=== PATIENT | male | born 1990 | race Caucasian/White ===

== ENCOUNTER 2019-08-20 06:06 | Inpatient (IN) | payer BC ==
[2019-08-20 07:12] LABS: #Basophils 0.1 thou/uL (0.0-0.2); #Eosinphils 0.2 thou/uL (0.0-0.7); #Lymphocytes 2.8 thou/uL (1.20-3.40); #Monocytes 0.9 thou/uL (0.11-0.59); #Neutrophils 4.1 thou/uL (1.40-6.50); %Basophils 0.9 % (0.0-1.0); %Lymphocytes 34.2 % (21.0-51.0); Hemoglobin 14.9 g/dL (14.0-18.0); Mean Corpuscular HGB CONC 33.4 g/dL (32.0-36.0); Mean Corpuscular Hemoglobin 30.7 pg (27.0-31.0); Mean Corpuscular Volume 91.8 fL (78.0-98.0); Mean Platelet Volume 7.5 fL (7.4-10.4); Platelet Count 204 thou/uL (130-400); RBC Distribution Width 11.6 % (11.5-14.5); Red Blood Cell (RBC) Count 4.85 mill/uL (4.70-6.10); White Blood Cell (WBC) Count 8.1 thou/uL (4.8-10.8)
[2019-08-20 07:25] LABS: Anion Gap 9 mmol/L (10-20); BUN (Urea Nitrogen) 17 mg/dL (8.9-20.6); Calc. Creatinine Clearance 110 mL/min (70-130); Calcium 9.3 mg/dL (7.8-10.44); Carbon Dioxide 29 mmol/L (22-29); Chloride 105 mmol/L (98-107); Estimated GFR-MDRD 71; Glucose 94 mg/dL (70-105); Potassium 4.1 mmol/L (3.5-5.1); Sodium 139 mmol/L (136-145)
[2019-08-20] MEDS ORDERED: Midazolam HCl 2 mg/2 ml Vial ONE (07:30)
[2019-08-20] MEDS ORDERED: ePHEDrine/0.9% NaCl/PF SYRINGE 50 mg/10 ml ONE (09:29)
[2019-08-20] MEDS ORDERED: Ondansetron PF 4 MG/2 ML Vial ONE (09:29)
[2019-08-20] MEDS ORDERED: Lidocaine 1% PF 5 ML VIAL ONE (09:29)
[2019-08-20] MEDS ORDERED: PHENYLEPHRINE-NS 100 MCG/ML 10 ML SYRINGE ONE (09:29)
[2019-08-20] MEDS ORDERED: Dexamethasone 20 MG/5 ML VIAL ONE (09:29)
[2019-08-20] MEDS ORDERED: PROPOFOL 200 MG/20 ML VIAL ONE (09:29)
[2019-08-20] MEDS ORDERED: Glycopyrrolate 0.2 MG/ML 5 ML SYRINGE ONE (09:29)
[2019-08-20] MEDS ORDERED: Rocuronium Bromide 10 MG/ML (10ML VIAL) ONE (09:29)
[2019-08-20] MEDS ORDERED: Fentanyl 100 MCG/2 ML VIAL ONE ×2 (10:08→12:50)
[2019-08-20] MEDS ORDERED: Meperidine HCl/PF 25 MG/ML VIAL SLOW IVP PRN (11:59)
[2019-08-20] MEDS ORDERED: Promethazine HCl 25 MG/ML VIAL IM PRN ×2 (11:59→13:18)
[2019-08-20] MEDS ORDERED: Ondansetron HCl/PF 4 MG/2 ML Vial IVP PRN (11:59)
[2019-08-20] MEDS ORDERED: Promethazine HCl 25 MG/ML VIAL SLOW IVP PRN (11:59)
--- NOTE | 2019-08-20 12:42 | OP ---
DATE OF PROCEDURE: 08/20/2019 [employer]: Ariana Lehman PA-C PROCEDURES PERFORMED: L3-L4 laminectomy, removal of intradural tumor, and operative microscope. DESCRIPTION OF PROCEDURE: The patient was brought to the operating room and intubated. He was rolled in a prone position on gel-filled chest rolls. An incision was made exposing L2 through L5 and the level was confirmed by x-ray. We performed complete L4 and complete L3 laminectomies. The dura was incised in the midline. The tumor was immediately obvious. Using operative microscope and microdissection techniques, the tumor had a thickened filament entering and exiting the tumor suggestive of the filum. There was discrete from other associated cauda equina. The tumor was removed in its entirety, capsulated, and sent for final pathology. The subarachnoid space was then extensively irrigated. The dura was closed in watertight fashion with a running Prolene suture. This was reinforced with DuraSeal fibrin sealant. MAC hemostasis was then secured. Vancomycin powder was applied and the wound was closed in anatomic layers. Job ID: [id number]
[2019-08-20] MEDS ORDERED: traMADol HCl 50 MG TAB PO PRN ×2 (13:18)
[2019-08-20] MEDS ORDERED: diphenhydrAMINE 50 MG/ML VIAL IVP PRN (13:18)
[2019-08-20] MEDS ORDERED: diphenhydrAMINE 25 MG CAP PO PRN (13:18)
[2019-08-20] MEDS ORDERED: Promethazine HCl 12.5 MG SUPP PR PRN (13:18)
[2019-08-20] MEDS ORDERED: HYDROcodone/Acetaminophen 10/325 mg Tablet PO PRN (13:18)
[2019-08-20] MEDS ORDERED: Morphine 4 MG/ML VIAL SLOW IVP PRN (13:18)
[2019-08-20] MEDS ORDERED: Promethazine 25 MG TAB PO PRN (13:18)
[2019-08-20] MEDS ORDERED: Ondansetron PF 4 MG/2 ML Vial IM PRN (13:18)
[2019-08-20] MEDS ORDERED: Milk Of Magnesia 30 ML UDCUP PO PRN (13:18)
[2019-08-20] MEDS ORDERED: Mag-Al 1200 mg/1200 mg/30 ML UDCUP PO PRN (13:18)
[2019-08-20] MEDS ORDERED: Morphine 2 MG/ML SYRINGE SLOW IVP PRN (13:19)
[2019-08-20] MEDS ORDERED: Promethazine HCl 25 MG/ML VIAL ONE (13:29)
[2019-08-20] MEDS ORDERED: CEFAZOLIN 2 GM in Premix Bag 1 BAG IVPB SCH (14:00)
[2019-08-20 14:18] VITALS: BMI 25.0
[2019-08-20] MEDS: Sodium Chloride 0.9% 1,000 ML IV SCH (14:26)
[2019-08-20] MEDS: HYDROcodone/Acetaminophen 10/325 mg Tablet PO PRN (16:58)
[2019-08-20] MEDS: CEFAZOLIN 2 GM in Premix Bag 1 BAG IVPB SCH (18:01)
[2019-08-20] MEDS: tiZANidine HCl 4 MG TAB PO PRN (23:01)
[2019-08-21] MEDS: CEFAZOLIN 2 GM in Premix Bag 1 BAG IVPB SCH (01:13)
[2019-08-21] MEDS: HYDROcodone/Acetaminophen 10/325 mg Tablet PO PRN ×5 (02:36→23:17)
[2019-08-21] MEDS: Sodium Chloride 0.9% 1,000 ML IV SCH ×2 (04:09→14:29)
--- NOTE | 2019-08-21 06:24 | PRG ---
DATE OF SERVICE: 08/21/2019 SUBJECTIVE: The patient is a 29-year-old male, status post L3-L4 laminectomy with intradural spinal tumor resection. He is postoperative day #1. His main complaint today is postural headaches and nausea. He has minimal back pain. Denies any leg pain or dysesthesias. His bowel and bladder are working appropriately. OBJECTIVE: On exam this morning, the patient awakens easily. He has free active range of motion in all extremities. No focal motor weakness. Incision is clean, dry, and intact. There is a scant amount of bloody drainage on his dressing. When we sit him up, he does get significant headache. PLAN: We will continue to work on pain control and localization. Anticipate his postural headaches will improve with time. At this point, there is no evidence of CSF leak from the incision. We will continue to monitor things closely. Job ID: [id number]
--- NOTE | 2019-08-21 11:33 | PRG ---
DATE OF SERVICE: 08/21/2019 The patient is doing quite well from a neurologic perspective. He is having significant postural spinal headache, which is not anticipated. This will gradually improve and as it allows, we can mobilize him towards dismissal. Awaiting final pathology. Job ID: [id number]
--- NOTE | 2019-08-21 14:07 | EKG ---
Test Reason : PREOP Blood Pressure : / mmHG Vent. Rate : 066 BPM Atrial Rate : 066 BPM P-R Int : 152 ms QRS Dur : 106 ms QT Int : 372 ms P-R-T Axes : 052 100 052 degrees QTc Int : 389 ms Normal sinus rhythm Rightward axis Borderline ECG No previous ECGs available Confirmed by MASON PICKETT, DR. Loo ([id number]) on 08/21/2019 2:07:38 PM Referred By: GUSTAVO Confirmed By:DR. Eze CUEVAS MD
[2019-08-21] MEDS: tiZANidine HCl 4 MG TAB PO PRN (19:40)
[2019-08-22 03:42] VITALS: TEMP 98.6
[2019-08-22] MEDS: tiZANidine HCl 4 MG TAB PO PRN ×2 (04:25→10:34)
[2019-08-22] MEDS: HYDROcodone/Acetaminophen 10/325 mg Tablet PO PRN (04:25)
[2019-08-22] MEDS: Sodium Chloride 0.9% 1,000 ML IV SCH (05:45)
[2019-08-22 07:27] VITALS: BP 112/63
--- NOTE | 2019-08-22 17:29 | DIS ---
DATE OF ADMISSION: 08/20/2019 DATE OF DISCHARGE: 08/22/2019 HOSPITAL COURSE: The patient is a 29-year-old male, who is status post L3-L4 laminectomy with spinal tumor resection. Following surgery, he was transitioned to the med/surg floor. He initially had some postural headaches and nausea, but this has improved with time. His pain has been well controlled with p.o. medications, he is tolerating regular diet, he is voiding appropriately. He has not had any incisional issues. He has been up ambulating in the department without any difficulties. We will plan to dismiss the patient to home. I have discussed home care precautions. We will follow up with the patient in approximately 2 weeks. Job ID: [id number]
--- NOTE | 2019-08-23 04:43 | PQF ---
KELVIN DWYER JONATHAN A MD [id number] SURG A- [id number] CLINICAL DOCUMENTATION CLARIFICATION FORM: POST DISCHARGE Addendum to original discharge summary date: ____ Late entry note date: __ DATE: 08/23/19 ATTN: Froylan Chi Please exercise your independent, professional judgment in responding to the clarification form. Clinical indicators are provided on the bottom of this form for your review Final Diagnosis on the Pathology report: Spinal Tumor: Schwannoma Clarification of Pathology report: Please check appropriate box(s): [ ] Agree w the pathology finding of Schwannoma [ ] Other explanation of pathology findings (please specify) [ ] Other diagnosis [ ] Unable to determine For continuity of documentation, please document condition throughout progress notes and discharge summary. Thank You. CLINICAL INDICATORS - SIGNS/ SYMPTOMS / LABS Pathologic Diagnosis p1 08/20 Lumbar 3 Tumor, ExcisionL Schwannoma. No malignancy identified PN p1 08/21 He has minimal back pain ad postunal headaches and nausea RISK FACTORS PN p1 08/21 Intradural spinal tumor PN p1 08/21 29 year-old Male TREATMENTS Operative report 08/20 L3-L4 Laminectomy, removal of Intradural tumor and operative microscope (This form is maintained as a part of the permanent medical record) 2014 [employer]. All Rights Reserved [email or web address] [not [email or web address]] [email or web address]
== END 2019-08-22 10:40 | disposition home or self-care (01) | DRG 983 ==
LOC: SURG A 06:06
PROVIDERS: ADMIT Neurological Surgery; ATTEND Neurological Surgery
PROC: 00BT0ZZ Excision of Spinal Meninges, Open Approach (ICD-10-PCS; principal; 2019-08-20)
DX: D49.7 Neoplasm of unspecified behavior of endocrine glands and other parts of nervous system (principal); F17.200 Nicotine dependence, unspecified, uncomplicated; T88.59XA Other complications of anesthesia, initial encounter; G44.40 Drug-induced headache, not elsewhere classified, not intractable
CPT/HCPCS: 36415; 76000; 80048; 85025; 88307; 93005; 93010; J0131; J0690; J1100; J2001; J2250; J2270; J2405; J2550; J2704; J3010; J3370